=== PATIENT | male | born 1970 | race Caucasian/White ===

== ENCOUNTER 2017-10-04 11:40 | Day surgery (SDC) | payer OTHER ==
[~2017-10-04 11:40] MED LIST: Buffered Lidocaine 0.9% SYRIN* 5 ML/SYR SYRINGE INTRADERM ONE; Famotidine TAB* 20 MG PO ONE
[2017-10-04] MEDS ORDERED: Famotidine TAB* 20 MG ONE (11:45)
[2017-10-04] MEDS ORDERED: ceFAZolin 2 GM PREMIX (*) 2 GM/50 ML BAG IVPB ONE (11:46)
[2017-10-04] MEDS ORDERED: Buffered Lidocaine 0.9% SYRIN* 5 ML/SYR SYRINGE ONE (11:46)
[2017-10-04] MEDS ORDERED: Ketorolac INJ* 30 MG/ML 1 ML VIAL ONE (11:46)
[2017-10-04] MEDS ORDERED: KETAMINE HCL* 50 MG/ML 10 ML VIAL ONE (12:54)
[2017-10-04] MEDS ORDERED: fentaNYL* 50 MCG/ML 2 ML VIAL (100 MCG VIAL) ONE (12:55)
[2017-10-04] MEDS ORDERED: Propofol* 10 MG/ML 20 ML BTL IV PUSH ONE ×2 (12:55→13:47)
[2017-10-04] MEDS ORDERED: Ondansetron INJ* 2 MG/ML VIAL ONE (12:55)
[2017-10-04] MEDS ORDERED: Lidocaine 2% PF * 5 ML VIAL ONE (12:55)
[2017-10-04] MEDS ORDERED: Dexamethasone IV* 4 MG/ML 1 ML (4 MG) ONE (12:55)
[2017-10-04] MEDS ORDERED: Lidocaine 1% MPF wEPI 200,000* 30 ML SDV ONE (12:56)
[2017-10-04] MEDS ORDERED: Bupivacaine 0.25% SDV* 30 ML ONE (12:56)
[2017-10-04] MEDS ORDERED: Midazolam* 1 MG/ML 10 ML VIAL (10 MG) ONE (12:56)
[2017-10-04] MEDS ORDERED: Ondansetron INJ* 2 MG/ML VIAL IV PRN (13:10)
[2017-10-04] MEDS ORDERED: Naloxone* 0.4 MG/ML 1 ML VIAL IV PRN (13:10)
[2017-10-04] MEDS ORDERED: Acetaminophen IV 1GM/100ML * 1,000 MG/100 ML VIAL IVPB ONE (13:10)
[2017-10-04] MEDS ORDERED: Glycopyrrolate IV* 0.2 MG/ML 1 ML VIAL ONE (13:34)
[2017-10-04 15:11] VITALS: BP 144/97
--- NOTE | 2017-10-04 22:12 | OP ---
CC: Dr. Radames Stark; Dr. Paras Sena OPERATIVE REPORT: DATE OF OPERATION: 10/04/17 DATE OF : 72 SURGEON: Radames Stark MD [employer]SIAN STUDIES PROFESSOR: Dixie Arias NP ANESTHESIOLOGIST: Dr. Veloz. ANESTHESIA: LMAC anesthesia. PRE-OP DIAGNOSIS: Umbilical hernia. POST-OP DIAGNOSIS: Umbilical hernia. OPERATIVE PROCEDURE: Umbilical hernia repair with mesh. DESCRIPTION OF PROCEDURE: Patient was supine on the operative table. After adequate intravenous sed ation, compression stockings, Emma Hugger warmer and intravenous antibiotics. The abdomen was preppe d with antiseptic, draped in a sterile fashion. Local infiltrative anesthesia was administered. Cur vilinear incision was created in the infraumbilical fold and dissection carried down to the hernia, w hich was dissected free and reduced. The fascial edges were freshened up. The hernia was about 1.5 c m across. The hernia was repaired over a 4.3 cm underlay patch, which was tacked up to the fascia, w hich was closed over top with 0 Vicryl. The umbilical skin is tacked back down, adipose closed with 3 -0 Vicryl and skin with 5-0 Vicryl followed by Steri-Strips. He tolerated the procedure well, was aw akened and brought to recovery in good condition. No complications. No drains. No pathologic specim ens. Sponge and instrument counts correct. Estimated blood loss 10 mL. [id number]/[facility] #: [id number]
== END 2017-10-04 15:25 | disposition home or self-care (01) ==
LOC: OR 11:40
PROVIDERS: ATTEND Surgery
DX: K42.9 Umbilical hernia without obstruction or gangrene (principal); F17.210 Nicotine dependence, cigarettes, uncomplicated; E78.5 Hyperlipidemia, unspecified; F43.10 Post-traumatic stress disorder, unspecified; F41.9 Anxiety disorder, unspecified; M54.9 Dorsalgia, unspecified; F11.11 Opioid abuse, in remission; F10.11 Alcohol abuse, in remission
CPT/HCPCS: A9270-GY; C1781; J0690; J1100; J1885; J2001; J2250; J2405; J2704; J3010

== ENCOUNTER 2017-12-16 09:12 | Emergency (ER) | payer OTHER ==
[2017-12-16] MEDS ORDERED: Ondansetron ODT TAB* 4 MG PO ONE (09:32)
[2017-12-16] MEDS ORDERED: NS 0.9% 1000 ML* 1,000 ML IV ONE ×2 (09:32→10:21)
[2017-12-16 09:54] LABS: ABS Basophils 0.1 10^3/ul (0-0.2); ABS Eosinophils 0 10^3/ul (0-0.6); ABS Lymphocytes 1.7 10^3/ul (1.0-4.8); ABS Neutrophils 9.6 10^3/ul (1.5-7.7); ABS Nucleated RBC 0 10^3/ul; Eosinophil % 0.1 % (0-6); Hematocrit 52 % (42-52); Lymphocyte % 13.9 % (25-47); Mean Corpuscular HGB Conc 35 g/dl (31-36); Mean Corpuscular Hemoglobin 31 pg (27-31); Mean Corpuscular Volume 90 fL (80-94); Mean Platelet Volume 7.4 um3 (7.4-10.4); Nucleated Red Blood Cells % 0.1; Platelet Count 245 10^3/ul (150-450); Red Blood Count 5.75 10^6/ul (4.00-5.40); Red Cell Distribution Width 15 % (10.5-15); White Blood Count 12.4 10^3/ul (3.5-10.8)
[2017-12-16 10:09] LABS: EGFR Non-African American 93.2 (>60)
[2017-12-16] MEDS ORDERED: PROCHLORPERAZINE INJ 5 MG/ML 2 ML VIAL IV ONE (10:25)
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
[2017-12-16 11:30] VITALS: BP 149/82
== END 2017-12-16 11:59 | disposition home or self-care (01) ==
LOC: ED 09:12
DX: F19.10 Other psychoactive substance abuse, uncomplicated (principal); F17.200 Nicotine dependence, unspecified, uncomplicated; J45.909 Unspecified asthma, uncomplicated; Z79.899 Other long term (current) drug therapy
CPT/HCPCS: 36415; 80053; 83690; 85025; 96374; 99282; A9270-GY; J0780

== ENCOUNTER → 2018-11-27 12:06 | Day surgery (SDC) | payer OTHER ==
[~2018-11-27 12:06] MED LIST changes: +Acetaminophen IV 1GM/100ML * 10 MG/ML VIAL IVPB ONE; +Acetaminophen IV 1GM/100ML * 100 ML ONE; -Buffered Lidocaine 0.9% SYRIN* 5 ML/SYR SYRINGE INTRADERM ONE; +Buffered Lidocaine 1% SYRIN* 1 ML/SYRINGE INTRADERM ONE; +Dexamethasone IV* 4 MG/ML 1 ML (4 MG) IV SLOW PU ONE; +Dexamethasone IV* 4 MG/ML 1 ML (4 MG) ONE; +DiMENhydriNATE IV* 50 MG/ML VIAL IV PUSH PRN; +Famotidine IV* 10 MG/ML 2 ML (20 mg) IV ONE; +Famotidine IV* 10 MG/ML 2 ML (20 mg) ONE; -Famotidine TAB* 20 MG PO ONE; +Gelfoam Sponge SIZE 100* SPONGE ONE; +KETAMINE HCL* 50 MG/ML 10 ML VIAL ONE; +Ketorolac INJ* 30 MG/ML 1 ML VIAL ONE; +Lactated Ringers 1000 ML Bag* 1,000 ML IV SCH; +Levalbuterol 0.63MG/3ML NEB* UNIT OF USE INH ONE; +Lidocaine 2% EPI 1:200000 MPF*10-20 ML VIAL ONE; +Lidocaine 2% PF * 5 ML VIAL ONE; +Midazolam* 1 MG/ML 5 ML VIAL (5 MG) ONE; +Morphine 4 MG/ML VIAL (1 ml) 4 MG/ML VIAL IV PRN; +Naloxone* 0.4 MG/ML 1 ML VIAL IV PRN; +Ondansetron ODT TAB* 4 MG ONE; +Ondansetron TAB* 4 MG PO ONE; +Oxymetazoline 0.05% NASAL SPR* 15 ML BTL ONE; +PROCHLORPERAZINE INJ 5 MG/ML 2 ML VIAL ONE; +Propofol* 10 MG/ML 20 ML BTL ONE; +fentaNYL* 50 MCG/ML 2 ML VIAL (100 MCG VIAL) IV PRN; +fentaNYL* 50 MCG/ML 2 ML VIAL (100 MCG VIAL) ONE
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
[2018-11-27 15:10] VITALS: BP 136/90
== END | disposition home or self-care (01) ==
LOC: OR 12:06
PROVIDERS: ATTEND Otolaryngology
DX: J34.2 Deviated nasal septum (principal); J34.3 Hypertrophy of nasal turbinates; J31.0 Chronic rhinitis; J45.909 Unspecified asthma, uncomplicated; Z72.0 Tobacco use
CPT/HCPCS: A9270-GY; J0780; J1100; J1885; J2250; J2704; J3010

== ENCOUNTER 2019-01-24 11:53 | Inpatient (IN) | payer OTHER ==
[2019-01-24] MEDS ORDERED: Morphine 4 MG/ML VIAL (1 ml) 4 MG/ML VIAL IV ONE (12:31)
[2019-01-24] MEDS ORDERED: Ondansetron INJ* 2 MG/ML VIAL IV ONE (12:31)
[2019-01-24] MEDS ORDERED: NS 0.9% 1000 ML** 1,000 ML IV ONE ×2 (12:31→13:14)
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
[2019-01-24 12:57] LABS: Hematocrit 49 % (42-52); Hemoglobin 16.4 g/dL (14.0-18.0); Mean Corpuscular HGB Conc 33 g/dL (31-36); Mean Corpuscular Hemoglobin 31 pg (27-31); Mean Corpuscular Volume 94 fL (80-94); Mean Platelet Volume 7.7 fL (7.4-10.4); Platelet Count 191 10^3/uL (150-450); Red Blood Count 5.24 10^6 /uL (4.18-5.48); Red Cell Distribution Width 15 % (10-15); White Blood Count 22.3 10^3/uL (3.5-10.8)
[2019-01-24 13:14] LABS: ALT 12 U/L (7-52); AST 15 U/L (13-39); Albumin 4.5 g/dL (3.2-5.2); Albumin/Globulin Ratio 1.7 (1-3); Alkaline Phosphatase 91 U/L (34-104); Anion Gap 7 mmol/L (2-11); BUN/Creatinine Ratio 10.6 (8-20); Blood Urea Nitrogen 9 mg/dL (6-24); CO2 Carbon Dioxide 27 mmol/L (22-32); Calcium 9.3 mg/dL (8.6-10.3); Chloride 103 mmol/L (101-111); Creatine Kinase 52 U/L (10-223); EGFR African American 116.9 (>60); EGFR Non-African American 96.6 (>60); Globulin 2.6 g/dL (2-4); Glucose 141 mg/dL (70-100); Potassium 4.2 mmol/L (3.5-5.0); Sodium 137 mmol/L (135-145); Total Protein 7.1 g/dL (6.4-8.9)
[2019-01-24] MEDS ORDERED: Piperacillin/Tazobac ADVAN(*) 3.375 GM in NS 0.9% 100 ML* 100 ML IVPB ONE (13:14)
[2019-01-24 13:38] LABS: ABS Lymphocytes 0.5 10^3/ul (1.0-4.8); ABS Monocytes 0.9 10^3/ul (0-0.8); ABS Neutrophils 20.9 10^3/ul (1.5-7.7); Lymphocyte % 2.2 %
[2019-01-24] MEDS ORDERED: Succinylcholine* 20 MG/ML 10 ML VIAL ONE (14:02)
[2019-01-24] MEDS ORDERED: fentaNYL* 50 MCG/ML 2 ML VIAL (100 MCG VIAL) ONE (14:02)
[2019-01-24] MEDS ORDERED: Rocuronium* 10 MG/ML VIAL ONE (14:02)
[2019-01-24] MEDS ORDERED: Midazolam* 1 MG/ML 2 ML VIAL (2 MG) ONE (14:02)
[2019-01-24] MEDS ORDERED: Buffered Lidocaine 1% SYRIN* 1 ML/SYRINGE INTRADERM ONE (14:11)
[2019-01-24] MEDS ORDERED: Bupivacaine 0.25% SDV PF* 10 ML VIAL INJ ONE (14:13)
[2019-01-24] MEDS ORDERED: ceFAZolin 2 GM in NS PREMIX(*) 2 GM/100 ML BAG IVPB ONE (14:48)
[2019-01-24] MEDS ORDERED: Lactated Ringers 1000 ML Bag* 1,000 ML IV SCH (15:00)
[2019-01-24] MEDS ORDERED: EPHEDrine (Pressors)* 50 MG/ML VIAL ONE (15:18)
[2019-01-24] MEDS ORDERED: Dexamethasone IV* 4 MG/ML 1 ML (4 MG) ONE (15:21)
[2019-01-24] MEDS ORDERED: Metoclopramide IV* 5 MG/ML 2 ML VIAL ONE (15:21)
[2019-01-24] MEDS ORDERED: Ketorolac INJ* 30 MG/ML 1 ML VIAL ONE (15:21)
[2019-01-24] MEDS ORDERED: Ondansetron INJ* 2 MG/ML VIAL ONE (15:21)
[2019-01-24] MEDS ORDERED: Sugammadex * 200 MG/2 ML VIAL IV PUSH ONE (16:09)
--- NOTE | 2019-01-24 16:18 | HP ---
Amended report to enter cosigning physician. CC: Dr. Roach at [facility]* ADMISSION HISTORY AND PHYSICAL: DATE OF ADMISSION: 01/24/19 ATTENDING SURGEON: Dr. Nely Alberto* (dictated by CHARISSA Sandhu). CHIEF COMPLAINT: Abdominal pain. HISTORY OF PRESENT ILLNESS: This is a 48-year-old male with history of hypertension, chronic pain, tobacco dependence, and opioid dependence who presents to the ED with approximately 48 hours of right lower quadrant abdominal pain. He states that the pain began Sunday afternoon or evening after taking 2 sips of beer. He describes pain as being on the right lower side of the abdomen with associated nausea, vomiting, chills, and sweats. He denies diarrhea. His significant other actually mentions that he had had some vomiting prior to onset of the acute illness and he also admits to having some difficulty urinating for almost a week prior to the acute event. He has not had any prior similar symptoms. He did undergo umbilical hernia repair in September [address] Stark. His last bowel movement was 2 days ago, which he described as normal. He has not had any blood per rectum or hematemesis. He has noted his urine to be dark, but otherwise no dysuria or hematuria. PAST MEDICAL HISTORY: Hypertension, tobacco dependence, chronic pain, opioid dependence, prior injury to the left upper extremity. PAST SURGICAL HISTORY: Previous surgeries include repair to left upper extremity injury, nasal surgery, L5-S1 laminectomy, umbilical hernia repair as noted above. CURRENT MEDICATIONS: 1. Suboxone 8 mg 1 to 2 times per day. 2. Gabapentin 600 mg b.i.d. 3. Wellbutrin 150 mg 2 tablets once daily. 4. Seroquel 50 mg (?) 1 tablet each morning, 2 tablets at bedtime. 5. Clonidine 0.1 mg once daily. 6. Prazosin dose not specified 2 tablets at bedtime. 7. He has also used Chantix recently to assist with smoking cessation. DRUG ALLERGIES: None known. FAMILY HISTORY: Significant for early onset heart disease and negative for anesthesia problems, bleeding or clotting disorders. SOCIAL HISTORY: The patient lives with his girlfriend. He is a former . I did not ask about employment record. He is a smoker of just over one-half pack per day for the past 30 years. He admits to drinking 4 beers per day and he smokes marijuana each evening. REVIEW OF SYSTEMS: General: As above per HPI. No other recent acute illnesses. HEENT: No specific problems reported other than dry mouth. Cardiovascular: No chest pain, palpitations, or heart murmur. He is treated for hypertension. Respiratory: Smoking history as noted. No chronic cough or shortness of breath. GI: As above per HPI. No additions. : As above. No additions. Endocrine: No diabetes or thyroid dysfunction. Neuropsych: As above. No additions. PHYSICAL EXAMINATION GENERAL: Well-nourished, well-developed male, in mild distress. VITAL SIGNS: Height 6 feet, weight 200 pounds. Temperature 100.8, blood pressure 133/88, pulse 86, respirations 24, room air saturation 96%. HEENT: Pupils bilaterally small. EOMs intact. No conjunctival pallor or scleral icterus. Oropharynx: Teeth in good repair. Mucous membranes dry. No intraoral lesions. NECK: No lymphadenopathy, thyromegaly, or masses. LUNGS: Clear to auscultation. No rales or wheezes. HEART: Regular rate and rhythm. No murmur appreciated. ABDOMEN: Mildly distended. Bowel sounds are present. Abdomen is firm with involuntary guarding. There is some referred tenderness to the right lower quadrant and maximum tenderness is in the right lower quadrant with rebound. No palpable mass. No palpable organomegaly. He does have a small palpable nontender reducible right inguinal hernia. GENITALIA: Otherwise not examined. EXTREMITIES: No edema. NEUROLOGICAL: Grossly intact. SKIN: Warm and dry. No suspicious rashes or lesions noted. DIAGNOSTIC STUDIES/LAB DATA: White blood cell count 22,300, hemoglobin 16.4. Electrolytes, BUN and creatinine are normal. Glucose mildly elevated at 141, lactic acid 3.6. CRP 72. Liver function tests and lipase are normal. CT scan without oral or IV contrast was reviewed personally showing a right renal stone, atherosclerotic calcification of the aorta and common iliacs. There is a structure coming retrocecally consistent with the appendix measuring 1.2 cm in diameter and with associated surrounding fat stranding consistent with acute appendicitis. IMPRESSION: Acute appendicitis. The patient was also seen and examined by Dr. Alberto. PLAN: Laparoscopic appendectomy. CHARISSA SANDHU [id number]/[facility] #: [id number] CORY
[2019-01-24] MEDS ORDERED: Ketorolac INJ* 30 MG/ML 1 ML VIAL IV PRN (16:29)
[2019-01-24] MEDS ORDERED: Ondansetron INJ* 2 MG/ML VIAL IV PRN (16:29)
--- NOTE | 2019-01-24 16:29 | OP ---
Operative Report - Detailed - Operation Details Date of Operation: 01/24/19 Surgeon(s): Nely Alberto Cloth Boil Off Machine Operator(s): None Anesthesiologist(s): Shari Salas Anesthesia: GETA Pre-Op Diagnosis: acute appendicitis Post-Op Diagnosis: acute suppurative appendicitis Planned Operative Procedure(s): laparoscopic appendectomy Estimated Blood Loss: minimal, less than 10 CC Specimen(s)/Culture(s) Description: appendix Wound Classification: Contaminated Brief History/Indications: Acute suppurative appendicitis with turbid fluid in abdomen
[2019-01-24] MEDS ORDERED: Piperacillin/Tazobactam VIAL*) 3.375 GM in NS 0.9% 100 ML* 100 ML IVPB SCH (17:00)
[2019-01-24] MEDS: NS 0.9% 1000 ML** 1,000 ML IV SCH (18:31)
[2019-01-24] MEDS: ZOSYN 3.375 GM Q8H per EXTENDED INFUSION IVPB SCH ×2 (19:51)
[2019-01-24] MEDS: Heparin VIAL(*) 5000 UNITS/ML VIAL (FIVE THOUSAND) SUBCUT SCH (21:45)
--- NOTE | 2019-01-24 21:49 | OP ---
OPERATIVE REPORT: DATE OF OPERATION: 01/24/19 DATE OF : 72 ATTENDING SURGEON: Nely Alberto MD ANESTHESIOLOGIST: Dr. Shari Salas. ANESTHESIA: General endotracheal anesthesia. PRE-OP DIAGNOSIS: Acute appendicitis. POST-OP DIAGNOSIS: Acute gangrenous appendicitis. OPERATIVE PROCEDURE: Laparoscopic appendectomy. ESTIMATED BLOOD LOSS: Minimal, less than 10 cc. INTRAOPERATIVE FINDINGS: Retrocecal appendix, gangrenous at the mid portion of the appendix with turbid fluid in the right lower quadrant and the pelvis. INDICATIONS FOR SURGERY: Mr. Yañez is a very pleasant 48-year-old gentleman who presented to the emergency room with 2 days' of right lower quadrant abdominal pain, nausea and vomiting. He was found to have white blood cell count of [address] scan had findings consistent with acute appendicitis. He therefore gave informed consent for laparoscopic appendectomy. He understood the risks, benefits, and alternatives of the procedure and wished to proceed. DESCRIPTION OF PROCEDURE: The patient was brought back to the operating room and placed on the operating table in the supine position. Sequential compression devices were in the bilateral lower extremities for DVT prophylaxis. Antibiotics with Ancef was administered. General endotracheal anesthesia was induced. The patient's abdomen was prepped and draped in normal sterile fashion after tucking his left arm. Given that the patient had a prior umbilical hernia repair with mesh last year, a decision was made to enter the abdomen using a Veress needle in the left upper quadrant. In the left upper quadrant, at Victor's point the subcutaneous tissue was infiltrated with 0.25% Marcaine. A small cleo was made in the skin and the Veress needle was placed into the intraabdominal cavity. A saline drop test was performed that confirmed that was positive. Therefore, insufflation was attached and insufflation to 15 mmHg was obtained. Next, a small right lower quadrant incision was made after infiltrating with 0.25% Marcaine. Using an optical trocar under direct visualization, the abdomen was then entered using Optiview technique. Once this was done, inspection of the abdominal cavity showed that the Veress needle was in place. It was slightly into the omentum and the omentum had been insufflated, but there was no apparent injury that had been made upon entry. The Veress needle was then removed and our attention was turned towards placing the remaining 2 trocars at the umbilicus. The mesh appeared to be very well incorporated. There were no adhesions. Therefore, an incision was made at the infraumbilical fold in the former incision from the umbilical hernia repair and a 12-mm trocar was placed under direct visualization after infiltrating 0.25% Marcaine for local anesthesia. Next, the remaining 5-mm trocar was placed in the mid lower abdomen after infiltrating the skin with 0.25% Marcaine. A small incision was made and then a 5-mm trocar was placed under direct visualization. Next, attention was turned towards the right lower quadrant. The small bowel and terminal ileum were displaced medially and the appendix was noted to be retrocecal and had a gangrenous segment at the mid portion, but did not appear to be grossly perforated. There was some local surrounding purulent/turbid appearing fluid. With great care, the appendix was bluntly from the cecum and it was elevated. A window was made at the base of the appendix and using a [place] and once this window was made, a 60-mm Endo ANGEL stapler antonio load was used to staple across the base of the appendix. LigaSure was then used to divide mesoappendix and the appendix was placed into an Endo Catch bag and removed from the abdomen as specimen. Examination of the staple line showed that it was hemostatic and that was also intact. The right lower quadrant was locally aspirated of the turbid fluid and locally irrigated as well. The fluid in the right lower quadrant as well as in the pelvis was also suctioned out. Of note, the patient also did appear to have a right inguinal hernia. Next, the 12-mm trocar was removed and the fascia of this incision was closed using an 0-Vicryl suture in a [id number] fashion. Once this was closed, desufflation was obtained and the remaining 2 trocars were removed under direct visualization. All the skin incisions were closed using interrupted 4-0 Monocryl sutures. A sterile dressing was in place. At the end of the case, all counts were correct and I was present through the entirety of the case. The patient's general endotracheal anesthesia was reversed and he was taken to the PACU in stable condition. [id number]/[facility] #: [id number] [facility] CENTERBoris
[2019-01-24] MEDS: HYDROcodone/ACETAMIN 5-325 MG* 1 TAB PO PRN (21:50)
[2019-01-25] MEDS: ZOSYN 3.375 GM Q8H per EXTENDED INFUSION IVPB SCH ×4 (03:57→11:37)
[2019-01-25 06:28] LABS: ABS Lymphocytes 1.2 10^3/ul (1.0-4.8); ABS Monocytes 1.5 10^3/ul (0-0.8); ABS Neutrophils 18.1 10^3/ul (1.5-7.7); Eosinophil % 0.1 %; Hematocrit 39 % (42-52); Hemoglobin 13.3 g/dL (14.0-18.0); Lymphocyte % 5.7 %; Mean Corpuscular HGB Conc 34 g/dL (31-36); Mean Corpuscular Hemoglobin 32 pg (27-31); Mean Corpuscular Volume 94 fL (80-94); Mean Platelet Volume 8.1 fL (7.4-10.4); Platelet Count 154 10^3/uL (150-450); Red Blood Count 4.12 10^6 /uL (4.18-5.48); Red Cell Distribution Width 15 % (10-15); White Blood Count 20.8 10^3/uL (3.5-10.8)
[2019-01-25] MEDS: NS 0.9% 1000 ML** 1,000 ML IV SCH (08:58)
[2019-01-25] MEDS: Heparin VIAL(*) 5000 UNITS/ML VIAL (FIVE THOUSAND) SUBCUT SCH (09:04)
[2019-01-25] MEDS: HYDROcodone/ACETAMIN 5-325 MG* 1 TAB PO PRN (09:04)
[2019-01-25 11:25] VITALS: BP 118/65
--- NOTE | 2019-01-25 14:11 | DS ---
DISCHARGE SUMMARY: DATE OF ADMISSION: 01/24/19 DATE OF DISCHARGE: 01/25/19 ATTENDING SURGEON: Nely Alberto MD. ADMISSION DIAGNOSIS: Acute appendicitis. DISCHARGE DIAGNOSIS: Acute gangrenous appendicitis. OPERATION PERFORMED: Laparoscopic appendectomy. HOSPITAL COURSE: Mr. Yañez is a very pleasant 48-year-old gentleman with a history of opioid and substance abuse in the past, who presented to the emergency room with right lower quadrant abdominal pain and was found to have acute appendicitis. He therefore underwent a laparoscopic appendectomy on 01/24. Intraoperative findings were significant for a gangrenous appendix with no gross perforation. The patient tolerated the surgery well. He was admitted overnight for IV antibiotics and on the day of discharge, postoperative day #1, the patient was doing very well. He was ambulating without assistance. His pain was very well controlled and improved after the appendectomy. He was tolerating the regular diet without any nausea or vomiting. He was passing flatus and having bowel movements and he was determined to be an appropriate candidate for discharge. DISCHARGE PHYSICAL EXAM: Temperature is 98.5, pulse 57, respiratory rate is 16 , O2 saturation 98% O2 on room air, blood pressure is 118/65. Abdomen is mildly distended. Incisions are clean, dry and intact with minimal tenderness. LABORATORY VALUES: White blood cell count is 20.8 from 22.3, hemoglobin is 13.3 , hematocrit 39. DISCHARGE MEDICATIONS: Home medications: The patient was instructed to resume his home medications. Given his history of former opioid use and the fact that he is currently taking Suboxone, he declined any narcotic prescription medication. He was told that he could take Tylenol or ibuprofen as needed for moderate discomfort. DISCHARGE INSTRUCTIONS: Patient was provided with written discharge instructions. Return precautions were also given. He should return for fevers , chills, nausea, vomiting, and worsening abdominal pain. CONDITION: Good. DISPOSITION: To home. FOLLOWUP: The patient was instructed to follow up with myself in approximately 2 weeks after surgery. [id number]/[facility] #: [id number] CORY
== END 2019-01-25 15:30 | disposition home or self-care (01) | DRG 225 ==
LOC: ED 11:53 → SSU 18:20
PROVIDERS: ADMIT Surgery; ATTEND Surgery
PROC: 0DTJ4ZZ Resection of Appendix, Percutaneous Endoscopic Approach (ICD-10-PCS; principal; 2019-01-24 14:15)
DX: K35.891 Other acute appendicitis without perforation, with gangrene (principal); I10 Essential (primary) hypertension; G89.29 Other chronic pain; F17.210 Nicotine dependence, cigarettes, uncomplicated; E78.2 Mixed hyperlipidemia; J45.909 Unspecified asthma, uncomplicated; J31.0 Chronic rhinitis; F41.9 Anxiety disorder, unspecified; M17.11 Unilateral primary osteoarthritis, right knee; F90.9 Attention-deficit hyperactivity disorder, unspecified type; Z87.442 Personal history of urinary calculi; Z82.49 Family history of ischemic heart disease and other diseases of the circulatory system; Z72.89 Other problems related to lifestyle; Z87.820 Personal history of traumatic brain injury
CPT/HCPCS: 36415; 74176; 80053; 82550; 83605; 83690; 85025; 86140; 88304; 99284; J0330; J0690; J1100; J1644; J1885; J2250; J2270; J2405; J2543; J2765; J3010; J3490

== ENCOUNTER → 2019-03-20 07:47 | Day surgery (SDC) | payer OTHER ==
[~2019-03-20 07:47] MED LIST changes: -Acetaminophen IV 1GM/100ML * 10 MG/ML VIAL IVPB ONE; -Acetaminophen IV 1GM/100ML * 100 ML ONE; +Bupivacaine 0.25% SDV PF* 10 ML VIAL INJ ONE; +Bupivacaine 0.5% W/EPI SDV* 10 ML VIAL INJ ONE; -Dexamethasone IV* 4 MG/ML 1 ML (4 MG) IV SLOW PU ONE; -Dexamethasone IV* 4 MG/ML 1 ML (4 MG) ONE; -Famotidine IV* 10 MG/ML 2 ML (20 mg) IV ONE; -Famotidine IV* 10 MG/ML 2 ML (20 mg) ONE; -Gelfoam Sponge SIZE 100* SPONGE ONE; -KETAMINE HCL* 50 MG/ML 10 ML VIAL ONE; +Lidocaine 1% INJ* 10 MG/ML 30 ML SDV ONE; -Lidocaine 2% EPI 1:200000 MPF*10-20 ML VIAL ONE; +Midazolam* 1 MG/ML 2 ML VIAL (2 MG) ONE; -Midazolam* 1 MG/ML 5 ML VIAL (5 MG) ONE; -Morphine 4 MG/ML VIAL (1 ml) 4 MG/ML VIAL IV PRN; -Ondansetron ODT TAB* 4 MG ONE; -Ondansetron TAB* 4 MG PO ONE; -Oxymetazoline 0.05% NASAL SPR* 15 ML BTL ONE; -PROCHLORPERAZINE INJ 5 MG/ML 2 ML VIAL ONE; +Sodium Citrate/Citric Acid* 15 ML UDC ONE; +Sodium Citrate/Citric Acid* 15 ML UDC PO ONE; +ceFAZolin 2 GM PREMIX in ORs 2 GM/50 ML BAG ONE
[2019-03-20 12:35] VITALS: BP 143/93
--- NOTE | 2019-03-20 22:05 | OP ---
DATE OF OPERATION: 03/20/19 - SDS DATE OF : 72 SERVICE: General Surgery. SURGEON: Nely Alberto MD ASSISTANTS: CHARISSA Sainz, and Dixie Arias NP. ANESTHESIOLOGIST: Jann Nazario DO ANESTHESIA: General endotracheal anesthesia. PRE-OP DIAGNOSIS: Right inguinal hernia. POST-OP DIAGNOSIS: Right direct inguinal hernia. OPERATIVE PROCEDURE: Open right inguinal hernia repair with mesh. ESTIMATED BLOOD LOSS: Minimal. SPECIMEN: Nerve. INDICATIONS FOR SURGERY: Mr. Yañez is a 48-year-old gentleman who presented with symptomatic right inguinal hernia that has been getting larger and more bothersome; therefore, he wished to undergo an elective repair. He understood that the risks included, but were not limited to bleeding, infection, injury to nearby structures, chronic pain, possible mesh infection, possible urinary retention, and hematomas and seromas. He understood as well the alternatives and benefits and he wished to proceed. DESCRIPTION OF PROCEDURE: The patient was brought back to the operating room and placed on the operating table in the supine position. Sequential compression devices were placed on the bilateral lower extremities for DVT prophylaxis. Antibiotics with Ancef was administered prior to incision. General endotracheal anesthesia was induced. The patient's right lower abdomen , testicle, and penis were prepped and draped in normal sterile fashion, and prior to beginning the procedure, a time-out was performed verifying the patient 's name, date of , and procedure to be performed which was a right inguinal hernia repair. An approximately 6 cm oblique incision was made 2 fingerbreadths above the inguinal ligament. The skin was divided down to the subcutaneous tissue. Amita's fascia was divided and the tissue was divided all the way down to the external oblique aponeurosis which was identified and cleared off. A small incision was made in the external oblique and this was divided towards the superficial ring. Once this was done, the external oblique superior and inferior leaflets were retracted superiorly and inferiorly, and using blunt dissection and a peanut, the cord structures were dissected out and encircled with a Faye drain. Once this was done, the cord structures were carefully examined for presence of an indirect hernia. The cremasteric muscles were off the vas deferens, which was identified. Of note, the ilioinguinal nerve was also identified and it was cut distally and proximally and allowed to retract into the muscle. Inspection of the spermatic cord structures showed that there was no indirect hernia sac present. There was, however, a fairly large direct hernia that was located medial to the epigastric vessels and medial to the cord structures. There was clearly a large amount of preperitoneal fat that was protruding through the direct space. This direct space was developed in the preperitoneal plane, and once this was done, a mesh was selected to repair the floor of the inguinal canal and also be placed in this preperitoneal direct space. The mesh that was selected was a bi-leafed polypropylene mesh. The deeper leaflet was placed into the preperitoneal space where the direct hernia was located and then the more anterior leaflet was placed on the floor of the inguinal canal in the normal anatomic position. The anterior aspect of the bilayered mesh was secured to the tubercle with a 0 Vicryl suture and then the suture was used to secure the mesh to the inguinal ligament in a running fashion all the way up towards the deep inguinal ring. Once this was done, the superior leaflet of the anterior portion of the mesh was approximated to the conjoint tendon using interrupted 0 Vicryl sutures. Of note, the deeper aspect of the mesh was placed in a very flat fashion in the direct space. The anterior portion of the mesh directing towards the deep inguinal ring was cut into 2 tails to allow for the spermatic cord structures pass. The leaflets were reapproximated using interrupted 0 Vicryl suture. Once this was done, the mesh was noted to be well in place repairing the inguinal canal. Hemostasis was obtained in the inguinal canal, and once this was done, the external oblique was reapproximated using a running 2-0 Vicryl suture and used to recreate the superficial ring. The Amita's fascia was closed using interrupted 3-0 Vicryl sutures and the skin was closed using a running 4-0 Monocryl suture. Sterile dressing was then placed. The right testicle was palpated in the scrotum. The patient's anesthesia was reversed and he was taken to the PACU in stable condition. At the end of the case, all counts were correct and I was present during the entirety of the case. [id number]/[facility] #: [id number] C[place]
== END | disposition home or self-care (01) ==
LOC: OR 07:47
PROVIDERS: ATTEND Surgery
DX: K40.90 Unilateral inguinal hernia, without obstruction or gangrene, not specified as recurrent (principal); E78.5 Hyperlipidemia, unspecified; J45.909 Unspecified asthma, uncomplicated; Z72.0 Tobacco use; F11.21 Opioid dependence, in remission; F90.9 Attention-deficit hyperactivity disorder, unspecified type; F41.9 Anxiety disorder, unspecified; F10.21 Alcohol dependence, in remission
CPT/HCPCS: A9270-GY; C1781; J0690; J1885; J2250; J2704; J3010; J3490

== ENCOUNTER 2023-08-16 08:15 | Observation (INO) ==
[2023-08-16] MEDS ORDERED: Naloxone 0.4 mg VIAL 0.4 mg/ml 1 ml VIAL IV PUSH PRN (09:37)
[2023-08-16] MEDS ORDERED: Flumazenil 0.5 mg/5 ml 0.1 MG/ML 5 ml VIAL IV PRN (09:37)
[2023-08-16 09:44] LABS: INR 0.89 (0.83-1.13)
[2023-08-16] MEDS ORDERED: fentaNYL 100 mcg/2 ml 50 MCG/ML VIAL ONE (10:23)
[2023-08-16] MEDS ORDERED: Heparin 1,000 UNIT/ML 10 ml (10,000 UNITS) CATHLAB/DIALYSIS ONE ×2 (10:23→11:03)
[2023-08-16] MEDS ORDERED: Heparin 2 UNITS/ML 1000 mls 2,000 ML IV ONE (10:23)
[2023-08-16] MEDS ORDERED: Midazolam 5 mg/5 ml VIAL 1 mg/ml 5 ml VIAL (5 mg) ONE (10:23)
[2023-08-16] MEDS ORDERED: Iohexol 350 (CONTRAST) 200 ML MDV IV ONE (10:24)
[2023-08-16] MEDS ORDERED: niCARdipine 0.1MG/ML IVPREMIX 20 MG/200 ML BAG IV ONE (10:26)
[2023-08-16] MEDS ORDERED: Heparin 2 UNITS/ML 1000 mls 1,000 ML IV ONE (10:30)
[2023-08-16] MEDS ORDERED: Lidocaine 1% MPF 5 ML VIAL ONE (10:39)
[2023-08-16] MEDS ORDERED: nitroGLYCERIN DRIP 25,000 MCG/250 ML BTL ONE (10:39)
[2023-08-16] MEDS ORDERED: Iohexol 350 (CONTRAST) 100 ML PAK IV ONE (11:34)
[2023-08-16] MEDS ORDERED: Ondansetron 4 mg VIAL 2 MG/ML 2 ml VIAL IV PRN (12:00)
[2023-08-16] MEDS ORDERED: Albuterol HFA INHALER 8 gm MDI INH PRN (12:02)
[2023-08-16] MEDS ORDERED: BUPRENORPHINE NALOXONE BUCCAL PRN (12:02)
[2023-08-16] MEDS ORDERED: Albuterol 2.5mg/3 ml (0.083%) NEB.SOLN INH PRN (12:02)
[2023-08-16] MEDS ORDERED: [UNRECOGNIZED DRUG - REMARK] INTRANASAL PRN (12:02)
[2023-08-16] MEDS: fentaNYL 100 mcg/2 ml 50 MCG/ML VIAL IV SLOW PU ONE (12:20)
[2023-08-16] MEDS: Midazolam 10 mg/10 ml VIAL 1 mg/ml 10 ml VIAL (10 mg) IV SLOW PU ONE (12:20)
[2023-08-16 17:27] VITALS: BP 158/87
[2023-08-16] MEDS ORDERED: Buprenorp/Nalox 8-2 MG FILM SL SCH (21:00)
[2023-08-17] MEDS ORDERED: Aspirin EC 81 mg TAB.EC (enteric coated) PO SCH (09:00)
[2023-08-17] MEDS ORDERED: Vitamin THERAPEUTIC TAB PO SCH (09:00)
[2023-08-17] MEDS ORDERED: Buprenorp/Nalox 4-1 MG FILM SL SCH (12:00)
== END 2023-08-16 17:58 | disposition home or self-care (01) ==
LOC: CHICATH 08:15 → ICU 08:15
PROVIDERS: ADMIT Internal Medicine; ATTEND Internal Medicine